=== PATIENT | female | born 1940 | race Caucasian/White ===

== ENCOUNTER 2022-04-19 12:37 | Emergency (ER) | payer OTHER ==
[2022-04-19 13:43] VITALS: RESP 18; BMI 24.7
[2022-04-19 14:15] LABS: BASO % 0.4 % (0-2.0); EOS % 2.2 % (0-4.5); HEMATOCRIT 43.2 % (32.4-45.2); HEMOGLOBIN 14.7 GM/dL (10.7-15.3); LYMPH % 19.7 % (8-40); MCH 30.6 pg (25.7-33.7); MCHC 33.9 g/dl (32.0-36.0); MEAN CELL VOLUME 90.2 fl (80-96); MEAN PLT VOLUME 8.1 fl (7.5-11.1); MONO % 5.5 % (3.8-10.2); NEUT % 72.2 % (42.8-82.8); PLATELET COUNT 387 10^3/uL (134-434); RDW 12.7 % (11.6-15.6); WHITE BLOOD COUNT 9.2 K/mm3 (4.0-10.0)
[2022-04-19 14:23] LABS: INR 1.1 (0.83-1.09); PROTHROMBIN TIME (PATIENT) 12.8 SEC (9.7-13.0)
[2022-04-19 14:26] LABS: ACTIVATED PTT 33.6 SECONDS (25.2-36.5)
[2022-04-19 14:45] LABS: CALCIUM 8.9 mg/dL (8.5-10.1)
[2022-04-19 14:49] LABS: BLOOD UREA NITROGEN 13.4 mg/dL (7-18)
[2022-04-19 14:50] LABS: CREATININE 0.7 mg/dL (0.55-1.3)
[2022-04-19 14:51] LABS: TOT PROT 6.4 g/dl (6.4-8.2)
[2022-04-19] MEDS ORDERED: ASPIRIN SUPPOSITORY 600 MG SUPP.RECT RC ONE (14:58)
[2022-04-19] MEDS ORDERED: ASPIRIN 300 MG SUPP.RECT RC ONE (15:01)
[2022-04-19 15:03] LABS: URINE APPEARANCE TURBID; URINE BILIRUBIN NEGATIVE (NEGATIVE); URINE COLOR YELLOW; URINE GLUCOSE (UA) NEGATIVE (NEGATIVE); URINE KETONE NEGATIVE (NEGATIVE)
[2022-04-19 15:04] LABS: URINE LEUK ESTERASE 3+ (NEGATIVE); URINE NITRITE NEGATIVE (NEGATIVE); URINE PROTEIN 1+ (NEGATIVE); URINE UROBILINOGEN 0.2 mg/dL (0.2-1.0)
[2022-04-19 15:09] LABS: EPI CELLS >36 /uL (0-25.1); HYALINE CASTS 11 /uL (0-3.1); URINE BACTERIA 3314 /uL (0-1359); URINE RBC 44 /uL (0-23.9); URINE WBC 3100 /uL (0-25.8)
[2022-04-19 15:27] VITALS: BP 167/77; PULSE 72
[2022-04-19 15:35] VITALS: TEMP 97.4
== END 2022-04-19 15:36 | disposition short-term general hospital (02) ==
LOC: JER 12:37
DX: I63.231 Cerebral infarction due to unspecified occlusion or stenosis of right carotid arteries (principal)
CPT/HCPCS: 0241U-QW; 36415; 70450-TC; 70496-TC; 70498-TC; 80053; 80061; 81003; 82550; 82962; 83036; 84484; 85025; 85610; 85730; 86850; 86900; 86901; 93005; 93010; 99285-25